=== PATIENT | female | born 1945 | race Caucasian/White ===

== ENCOUNTER 2017-10-17 18:02 | Emergency (ER) | payer OTHER, MEDICARE ==
[2017-10-17 18:13] VITALS: RESP 18
--- NOTE | 2017-10-17 18:19 | CPEKG ---
Heart Rate: 89 RR Interval: 674 P-R Interval: 160 QRSD Interval: 98 QT Interval: 400 QTC Interval: 487 P [place]: 63 QRS [place]: -11 T Wave [place]: 41 EKG Severity - ABNORMAL ECG - EKG Impression: SINUS RHYTHM EKG Impression: VENTRICULAR PREMATURE COMPLEX EKG Impression: LEFT ATRIAL ABNORMALITY EKG Impression: PROBABLE LATERAL INFARCT, AGE INDETERMINATE EKG Impression: BORDERLINE PROLONGED QT INTERVAL Electronically Signed By: Zelalem Walton 17-Oct-2017 18:34:13
[2017-10-17] MEDS ORDERED: NS 500 ML IV ONE (18:22)
[2017-10-17] MEDS ORDERED: LORazepam 2 MG/ML INJ IVP ONE (18:22)
--- NOTE | 2017-10-17 18:26 | EDPHY ---
H & P Stated Complaint: htn/irregular hr Time Seen by Provider: 10/17/17 18:15 HPI/ROS: CHIEF COMPLAINT: Palpitations, anxiety HISTORY OF PRESENT ILLNESS: Patient is a 71-year-old female who comes to the emergency department complaining palpitations and anxiety. She in her daughter presented initially to the urgent care who referred her here because her blood pressure was high. Daughter states that her blood pressure is always high but usually around 180 systolic. Today it is over 200. The patient does not have a headache or feel lightheaded. She denies chest pain or shortness of breath. Her daughter states that she is very anxious because she is supposed to fly out tomorrow and her daughter will not be with her. The patient has a history of high anxiety. She did take a 0.25 mg Xanax this afternoon without significant improvement. She denies any cardiac history. No focal weakness or deficits. No headache. No recent fevers or infections. REVIEW OF SYSTEMS: Constitutional: denies: chills, fever, recent illness, recent injury EENTM: denies: blurred vision, double vision, nose congestion Respiratory: denies: cough, shortness of breath Cardiac: See HPI Gastrointestinal/Abdominal: denies: abdominal pain, diarrhea, nausea, vomiting, blood streaked stools Genitourinary: denies: dysuria, frequency, hematuria, pain Musculoskeletal: denies: joint pain, muscle pain Skin: denies: lesions, rash, jaundice, bruising Neurological: denies: headache, numbness, paresthesia, tingling, dizziness, weakness Hematologic/Lymphatic: denies: blood clots, easy bleeding, easy bruising Immunologic/allergic: denies: HIV/AIDS, transplant EXAM: GENERAL: Anxious, overweight and in no acute distress. HEAD: Atraumatic, normocephalic. EYES: Pupils equal round and reactive to light, extraocular movements intact, sclera anicteric, conjunctiva are normal. ENT: TMs normal, nares patent, oropharynx clear without exudates. Moist mucous membranes. NECK: Normal range of motion, supple without lymphadenopathy or JVD. LUNGS: Breath sounds clear to auscultation bilaterally and equal. No wheezes rales or rhonchi. HEART: Regular rate and rhythm without murmurs, rubs or gallops. ABDOMEN: Soft, nontender, normoactive bowel sounds. No guarding, no rebound. No masses appreciated. BACK: No CVA tenderness, no spinal tenderness, step-offs or deformities EXTREMITIES: Normal range of motion, no pitting or edema. No clubbing or cyanosis. NEUROLOGICAL: Cranial nerves II through XII grossly intact. Normal speech, normal gait. 5/5 strength, normal movement in all extremities, normal sensation PSYCH: Anxious, asking for sedative SKIN: Warm, dry, normal turgor, no visible rashes or lesions. Source: Patient Exam Limitations: No limitations - Personal History Current Tetanus/Diphtheria Vaccine: No - Medical/Surgical History Hx Asthma: No Hx Chronic Respiratory Disease: No Hx Diabetes: No Hx Cardiac Disease: No Hx Renal Disease: No Hx Cirrhosis: No Hx Alcoholism: No Hx HIV/AIDS: No Hx Splenectomy or Spleen Trauma: No Other PMH: Anxiety, htn - Family History Significant Family History: No pertinent family hx - Social History Smoking Status: Never smoked Alcohol Use: Sober Drug Use: None Constitutional: Initial Vital Signs Temperature (C) 36.7 C 10/17/17 18:05 Heart Rate 88 10/17/17 18:05 Respiratory Rate 18 10/17/17 18:05 O2 Sat (%) 98 10/17/17 18:05 O2 Delivery Mode Room Air Allergies/Adverse Reactions: No Known Allergies Allergy (Unverified 10/17/17 18:04) Home Medications: Medication Instructions Recorded Amlodipine Besylate 10/17/17 Diazepam [Valium 5 MG (*)] 5 mg PO TID PRN #15 tab 10/17/17 Indapamide 10/17/17 Valsartan 10/17/17 Xanax 10/17/17 Medical Decision Making - Diagnostics EKG Interpretation: An EKG obtained and was read and documented in trace view. Please see trace view for full reading and report. Sinus rhythm, single PVC ED Course/Re-evaluation: 7:05 p.m. I spent a significant amount of time in the room with the patient. She tells me now that she thinks this is all from anxiety and that it is not her heart at all. She states that she does not like the Xanax she is currently prescribed as much as Valium which she used to take. She states that the Xanax is to up and down. She has a slightly low sodium level. She states that she has been avoiding sodium because of her blood pressure. I encouraged her to stop doing this. She is receiving IV fluids which should help. Her potassium is also slightly low. We will supplement her and encouraged her to take a multivitamin. Her blood pressure is down to 180/100 which is not far from her baseline. She is asking for prescription for Valium. We discussed her troponin and other lab work which is reassuring. 8:00 p.m. we had another long discussion about her medications. She is currently asymptomatic. She does not wish to have any further treatment or observation. She has not had any further palpitations. She has not had any chest pain or shortness of breath at all. She feels much better after the Ativan and is requesting a refill of her Valium. I told her to discontinue the Xanax. We also discussed dietary questions and blood pressure control. Her blood pressure is currently 130/80. Differential Diagnosis: Partial list of the Differential diagnosis considered include but were not limited to; anxiety, palpitations and although unlikely based on the history and physical exam, I also considered acute coronary disease, dissection, PE. I discussed these differential diagnoses and the plan with the patient as well as the usual and expected course. The patient understands that the diagnosis is provisional and that in medicine we are not always correct and that further workup is often warranted. Usual and customary warnings were given. All of the patient's questions were answered. The patient was instructed to return to the emergency department should the symptoms at all worsen or return, otherwise to followup with the physician as we discussed. - Data Points Laboratory Results: Laboratory Results 10/17/17 18:20 10/17/17 18:20 Medications Given: Discontinued Medications Diazepam (Valium 5 Mg Prepack#4) 1 btl TAKEHOME EDNOW ONE Stop: 10/17/17 20:07 Last Admin: 10/17/17 20:18 Dose: 1 btl Sodium Chloride (Ns) 500 mls @ 1,000 mls/hr IV EDNOW ONE PRN Reason: Protocol Stop: 10/17/17 18:51 Last Admin: 10/17/17 18:39 Dose: 500 mls Lorazepam (Ativan Injection) 0.5 mg IVP EDNOW ONE Stop: 10/17/17 18:23 Last Admin: 10/17/17 18:38 Dose: 0.5 mg Potassium Chloride (Klor-Con) 20 meq PO EDNOW ONE Stop: 10/17/17 18:56 Last Admin: 10/17/17 19:21 Dose: 20 meq Departure - Departure Disposition: Home, Routine, Self-Care Clinical Impression: Palpitations, Anxiety, PVC (premature ventricular contraction) Condition: Fair Instructions: Diazepam (By mouth), Premature Ventricular Contractions (ED), Anxiety (ED) Additional Instructions: Discontinue Xanax Referrals: THAD MARTIN [Other] - As per Instructions Prescriptions: Diazepam [Valium 5 MG (*)] 5 mg PO TID PRN #15 tab PRN Reason: Anxiety
[2017-10-17 18:31] LABS: PLATELET COUNT 495 10^3/uL (150-400)
[2017-10-17 18:42] LABS: INR 0.92 (0.83-1.16); PROTIME(PATIENT) 12.6 SEC (12.0-15.0)
[2017-10-17] MEDS ORDERED: POTASSIUM CL 20 MEQ TAB PO ONE (18:55)
[2017-10-17 19:59] VITALS: BP 136/76; PULSE 70; O2SAT 93
[2017-10-17] MEDS ORDERED: DIAZEPAM 5 MG PREPACK#4 BTL TAKEHOME ONE (20:06)
[2017-10-17 20:27] VITALS: TEMP 98.2
== END 2017-10-17 20:30 | disposition home or self-care (01) ==
PROC: 3E0337Z Introduction of Electrolytic and Water Balance Substance into Peripheral Vein, Percutaneous Approach (ICD-10-PCS; principal; 2017-10-17)
DX: I49.3 Ventricular premature depolarization (principal); I10 Essential (primary) hypertension; E86.9 Volume depletion, unspecified
CPT/HCPCS: 71046; 93005; 96361; 96374; 99285; J2060